=== PATIENT | male | born 1990 | race Caucasian/White ===

== ENCOUNTER 2019-11-21 10:00 | Emergency (ER) | payer OTHER ==
[~2019-11-21] VITALS: Ht 187.9 cm; Wt 122.5 kg
[2019-11-21] MEDS ORDERED: CEPHALEXIN500 M1 PO (12:04)
== END 2019-11-21 12:40 | disposition home or self-care (01) ==
LOC: ED 10:00
DX: S61.221A Laceration with foreign body of left index finger without damage to nail, initial encounter (principal); W45.8XXA Other foreign body or object entering through skin, initial encounter; Y93.89 Activity, other specified; Y92.89 Other specified places as the place of occurrence of the external cause; Y99.8 Other external cause status